=== PATIENT | male | born 1990 | race Caucasian/White ===

== ENCOUNTER 2017-07-19 10:06 | Emergency (ER) | payer MEDICARE, MEDICAID ==
[2017-07-19 11:03] VITALS: BP 121/71
--- NOTE | 2017-07-19 11:28 | ERNOTE ---
Date of Service: 07/19/17 Time Seen by Provider: 07/19/17 11:27 Stated Complaint: COUGH, HEADACHE Presenting Symptoms:: cough Source: patient, RN notes reviewed Exam Limitations: no limitations Immunizations: IMMUNIZATION HX Immunizations Up to Date Yes History of Influenza Vaccine No Hx Pneumococcal Vaccination No Allergies/Adverse Reactions: Allergies No Known Allergies Allergy (Verified 07/19/17 10:58) Home Medications: HOME MEDICATIONS NK [No Home Medication] 07/19/17 [Last Taken Unknown] - History of Present Ilness Narrative: 27 year old male with a cough for a week. His infant son has had croup. He has been taking OTC cough meds without much improvement. Date (Duration): 07/12/17 Frequency/Possible Cause: Reports: illness exposure Associated Symptoms: Reports: cough. Denies: chest pain/soreness, shortness of breath, wheezing, facial pain, nasal congestion, nasal drainage, dizziness, lightheadedness, earache, headache, sore throat, muscle aches, fever/chills Review of Systems - Review of Systems Constitutional: Absent: recent illness, fever, chills, malaise EYE: Absent: eye pain, eye discharge ENT: Absent: ear pain, nose congestion, nasal drainage, sore throat Respiratory: Present: cough. Absent: shortness of breath, wheezing, stridor Cardiology: Absent: chest pain, palpitations, syncope Gastrointestinal/Abdominal: Absent: nausea, vomiting, abdominal pain Genitourinary: Present: no symptoms reported Musculoskeletal: Absent: muscle pain, joint pain Skin: Absent: rash, lesions Neurological: Absent: headache, dizziness/light-headedness Endocrine: Present: no symptoms reported Hematologic/Lymphatic: Present: no symptoms reported Psych: Present: no symptoms reported - Patient's Past Medical History Patient History - Medical: No pertinent hx Patient History - Cardiac/Respiratory: No pertinent hx Patient History - Cancer: No Hx of Cancer Patient History - Surgical Procedures: No surgical history Patient History - Other: None - Social History Living Situations: home Psych History: No pertinent hx Smoking Status: Current every day smoker Have you smoked in the past 12 months: Yes Do you dip or chew tobacco: No Alcohol Use: rarely Drug Use: none - Immunizations Immunizations Up to Date: Yes Hx Pneumococcal Vaccination: No History of Influenza Vaccine: No Physical Exam - Physical Exam General Appearance: Present: wd/wn, alert, no apparent distress Head Exam: Present: normal inspection, no evidence of injury Eye Exam: Normal inspection: bilateral Ears, Nose, Throat: Present: normal ENT inspection, normal pharynx Neck: Present: normal inspection, nontender, supple Respiratory: Present: no respiratory distress, no accessory muscle use, rhonchi - mild, left lower lung Cardiovascular/Chest: Present: regular rate, rhythm, no murmur Neurological Exam: Present: alert, oriented, normal mood/affect, no motor/ sensory deficits Skin Exam: Present: normal color, warm/dry ED Progress - Vital Signs Patient's Vital Signs:: I have reviewed the patient's vital signs. Vital Signs: Vital Signs 07/19/17 07/19/17 10:20 10:58 Temperature 37.4 C 37.3 C Pulse Rate 95 88 Respiratory 17 16 Rate Blood Pressure 130/72 121/71 O2 Sat by Pulse 99 94 Oximetry - Progress/Reassessment Chief Complaint: Cough Progress:: Unchanged Departure Clinical Impression: Bronchitis, acute Qualifiers: Bronchitis organism: unspecified organism Qualified Code(s): J20.9 - Acute bronchitis, unspecified - Departure Disposition: Home self-care Condition: Good Instructions: Acute Bronchitis Additional Instructions: Increase fluid intake Humidifier Robitussin DM during the day, Nyquil at night Stop smoking
== END 2017-07-19 11:47 | disposition home or self-care (01) ==
LOC: ER 10:06
DX: J20.9 Acute bronchitis, unspecified (principal); F17.200 Nicotine dependence, unspecified, uncomplicated